=== PATIENT | male | born 1955 | race Caucasian/White ===

== ENCOUNTER → 2017-11-07 | Outpatient (CLI) | payer BC, SELFPAY | PROVIDERS: Family Provider Family Medicine; Visit Provider Family Medicine | DX: R06.02 Shortness of breath (principal) | CPT/HCPCS: 94060; 94640 ==

== ENCOUNTER → 2018-09-17 14:41 | Outpatient (CLI) | payer BC, SELFPAY ==
[2018-09-19 15:20] LABS: PSA, Free 0.26 ng/mL; Prostate Specific Ag 1.3 ng/mL (0.0-4.0)
[2018-09-21 18:42] LABS: Testosterone, Total, LC/MS 375.8 ng/dL (264.0-916.0); Testosterone,Free 5.7 pg/mL (6.6-18.1)
== END ==
PROVIDERS: Visit Provider Urology
DX: E29.1 Testicular hypofunction (principal); N40.0 Benign prostatic hyperplasia without lower urinary tract symptoms
CPT/HCPCS: 36415; 84153; 84154; 84402; 84403

== ENCOUNTER 2019-08-11 21:03 | Observation (INO) ==
[2019-08-11 21:22] LABS: Microscopic, Urine URINE MICROSCOPIC (MICROSCOPIC)
[2019-08-11 21:23] LABS: Appearance,Urine CLEAR (Clear); Bilirubin,Urine Negative (Negative); Blood, Urine Negative (Negative); Color,Urine YELLOW (Yellow); Glucose,Urine (UA) Negative (Negative); Ketones,Urine Negative (Negative); Leukocyte Esterase,Urine Negative (Negative); PH,Urine 5.5 (5.0-8.5); Protein,Urine Negative (Negative); Specific Gravity, Urine >= 1.030 (1.005-1.030); Urobilinogen,Urine 0.2 EU/dl (0.2)
[2019-08-11 21:25] LABS: Basophils % 0.2 % (0.1-2.0); Eosinophils # 0.4 K/mm3 (0.0-0.4); Eosinophils % 2.5 % (0.1-12.0); Hematocrit 54.8 % (42.0-52.0); Lymphocytes # 2.6 K/mm3 (0.7-4.5); Lymphocytes % 17.8 % (10-50); Mean Corpuscular HGB Conc 34.1 g/dL (31.8-35.4); Mean Corpuscular Volume 95.9 fl (80-94); Mean Platelet Volume 8.4 fl (7.4-10.4); Monocytes # 0.8 K/mm3 (0.1-1.0); Monocytes % 5.7 % (1.7-9.3); Neutrophils # 10.7 K/mm3 (1.8-7.8); Neutrophils % 73.8 % (37.0-80.0); Platelet Count 257 K/mm3 (142-424); Red Blood Count 5.72 M/mm3 (4.60-6.20); Red Cell Distribution Width 12.5 % (11.5-17.5); White Blood Count 14.5 K/mm3 (4.8-10.8)
[2019-08-11 21:29] LABS: Hemoglobin 18.8 g/dL (14.1-18.0)
[2019-08-11 21:32] LABS: Bacteria,Urine 1+ /lpf; Calcium Oxalate Crystals,Urine Trace /lpf; Mucus,Urine 1+ /lpf; WBC,Urine Occasional #/hpf (0-3)
[2019-08-11 21:36] LABS: Albumin Level 4.2 gm/dL (3.4-5.0); Albumin/Globulin Ratio 1.3 (1.1-1.8); Anion Gap 13.7 mEq/L (5-15); Bilirubin,Total 0.5 mg/dL (0.2-1.0); C-Reactive Protein 2.5 mg/dL (0.0-0.9); Calcium 9.3 mg/dL (8.5-10.1); Globulin 3.3 gm/dl (1.3-3.2); Total Protein,Serum 7.5 gm/dL (6.4-8.2)
--- NOTE | 2019-08-11 22:34 | Emergency Department Note ---
ED Disposition Clinical Impression: Enteritis Disposition: Admitted as Observation Condition on Discharge: Good Referrals: Pérez Phelan MD [Primary Care Provider] - - Critical Care Critical Care Time: No Attestation: On 08/11/19, the high probability of a clinically significant, sudden or life threatening deterioration of the following system(s) required my full and direct attention, intervention and personal management. The time I documented below is in addition to time spent performing reported procedures but includes the following listed in this critical care notation. Medical Decision Making - Medical Records Medical records reviewed: Yes: I reviewed the patient's medical records. - Brett Inquiry Pt receiving controlled substance: No Vital Signs: 08/11/19 21:08 08/11/19 21:56 08/11/19 22:22 Temperature 98.4 F Temperature Source Oral Pulse Rate [Right Brachial] 86 80 72 Respiratory Rate 18 18 18 Blood Pressure [Right Arm] 148/89 H 122/95 H 140/78 Blood Pressure Mean [Right Arm] 108 104 98 Blood Pressure Source [Right Arm] Automatic Cuff Automatic Cuff Automatic Cuff Blood Pressure Position [Right Arm] Sitting Sitting Sitting 02 Sat by Pulse Oximetry 97 98 97 Oxygen Delivery Method Room Air Room Air Room Air - Lab Data Lab results reviewed: Yes: I reviewed the patient's lab results. Lab Results 08/11/19 21:15: Urine Color Yellow, Urine Appearance Clear, Urine pH 5.5, Ur Specific [place] >= 1.030, Urine Protein Negative, Urine Glucose (UA) Negative, Urine Ketones Negative, Urine Blood Negative, Urine Nitrate Negative, Urine Bilirubin Negative, Urine Urobilinogen 0.2, Ur Leukocyte Esterase Negative, Urine WBC Occasional, Calcium Oxalate Crystal Trace, Urine Bacteria 1+, Urine Mucus 1+ 08/11/19 21:15: WBC 14.5 H, RBC 5.72, Hgb 18.8 H*, Hct 54.8 H, MCV 95.9 H, MCH 32.7 H, MCHC 34.1, RDW 12.5, Plt Count 257, MPV 8.4, Neut % (Auto) 73.8, Lymph % (Auto) 17.8, [place] % (Auto) 5.7, Eos % (Auto) 2.5, Baso % (Auto) 0.2, Neut # (Auto) 10.7 H, Lymph # (Auto) 2.6, [place] # (Auto) 0.8, Eos # (Auto) 0.4, Baso # (Auto) 0.0 08/11/19 21:15: Sodium 142, Potassium 3.7, Chloride 102, Carbon Dioxide 30, Anion Gap 13.7, BUN 14, Creatinine 0.88, Estimated Creat Clear 76, Estimated GFR 88, Est GFR ( Amer) 106, Glucose 108 H, Calcium 9.3, Total Bilirubin 0.5, AST 13 L, ALT 14, Alkaline Phosphatase 72, C-Reactive Protein 2.5 H, Total Protein 7.5, Albumin 4.2, Globulin 3.3 H, Albumin/Globulin Ratio 1.3, Amylase 32, Lipase 103 08/11/19 21:15: ESR 1 Result diagrams: 08/11/19 21:15 08/11/19 21:15 Orders (Tests/Meds): ED MEDICATIONS Generic Name Dose Route Start Last Admin Trade Name Freq PRN Reason Stop Dose Admin Sodium Chloride 1,000 mls @ 999 mls/hr 08/11/19 21:15 08/11/19 21:54 Sod Chlor 0.9% 1000ml Bag IV 08/11/19 22:15 999 mls/hr .[id number] SHASHANK Administration Discontinued Medications Generic Name Dose Route Start Last Admin Trade Name Freq PRN Reason Stop Dose Admin Ketorolac Tromethamine 30 mg 08/11/19 21:52 08/11/19 21:54 Toradol 30mg/Ml Vial IV 08/11/19 21:53 30 mg ONCE ONE Administration Ondansetron HCl 4 mg 08/11/19 21:17 08/11/19 21:54 Zofran 4mg/2ml Vial IV 08/11/19 21:18 4 mg ONCE ONE Administration ORDERS Category Date Time Status CT abdomen pelvis wo con Stat Cat Scan 08/11/19 21:15 Taken Diarrhea 23 Panel, PCR Stat Lab 08/11/19 21:15 Ordered - CT Data CT Scan: Abdomen, Pelvis Time Received: 22:[address] Reviewed: Yes: I have viewed the radiologist's interpretation Preliminary Findings: Abnormal (see report) - Physician Consults Physician Consulted: alexa Reason -: Admission Nausea/Vomiting/Diarrhea HPI - General Chief complaint: Abdominal Pain Stated complaint: abd pain Time Seen by Provider: 08/11/19 21:15 Mode of Arrival: Ambulatory Source of Information: Patient, Medical Record ( ) Limitations: No Limitations Description of Symptoms (Recalled from ER Triage Doc. by RN): Pt c/o diarrhea,nausea, abd pain x 2 days. Denies any other symptoms at this time. - History of Present Illness HPI Narrative: pt with 2-3 day hx of crampy abd pain with diarrhea w/o blood or known contacts complaint: nausea, diarrhea, abdominal pain Onset (ago): day(s) Associated Abdominal Pain: Yes Location of pain: diffuse Severity: moderate Associated symptoms: denies other symptoms - Related Data Home Medications Medication Instructions Recorded Confirmed No Known Home Medications 08/11/19 08/11/19 Testosterone Cypionate 1 inj IM MONTHLY 08/11/19 08/11/19 Allergies Allergy/AdvReac Type Severity Reaction Status Date / Time No Known Allergies Allergy Verified 08/11/19 22:24 [facility] History - Hepatitis A Screen Drug use history?: No High risk sexual behaviors?: No History of sexually transmitted infection?: No Currently employed?: No Childcare worker?: No Do you have indoor plumbing?: Yes Do you have electricity?: Yes Attestation statement:: This patient has been screened for Hepatitis A risk factors. I have reviewed the patient's past medical history: Yes Medical History: Reports:: Hyperlipidemia Other Medical History: Reports: Arthritis Laterality Cases: Bilateral: Tonsillectomy Other Surgeries: Yes: Other Amputation: No Fractures: No Comment: URINARY STENTS,LITHOTRISY X 3,ORAL SURGERY - Social History Smoking Status: Current every day smoker # Packs/Day (cigarettes): 1 Alcohol Intake: never Substance Use Type: denies use Occupational Status: employed Housing: house Household Members: spouse Family Hx:: Asthma, Hyperlipidemia, Diabetes, Hypertension ROS Obtained: Yes All systems reviewed & no additional complaints - Constitutional Constitutional: Denies fever(s) - Eyes Eyes: Denies change in vision - ENT Ears, Nose, Mouth, and Throat: Denies sore throat - Cardiovascular Cardiovascular: Denies chest pain - Respiratory Respiratory: No cough - Gastrointestinal Gastrointestingal: Reports: as per HPI, abdominal pain, cramping, diarrhea, vomiting. Denies: bright red blood in stools - Genitourinary Male Genitourinary: Denies hematuria - Musculoskeletal Musculoskeletal: Denies joint pain, Denies joint swelling - Integumentary/Breasts Skin/Breast: Denies rash - Neurologic Neurologic: Denies seizure-like activity Physical Exam - General General appearance: alert - Head Head exam: normocephalic - Eye Eye exam: Present: PERRL, EOMI. Absent: scleral icterus - ENT ENT exam: Present: mucous membranes dry - Neck Neck exam: Present: trachea midline - Respiratory Respiratory exam: Absent: respiratory distress - Cardiovascular Cardiovascular exam: Present: regular rate, systolic murmur - Abdominal Exam Abdominal exam: Present: soft, tenderness, hyperactive bowel sounds. Absent: guarding, rebound, rigidity Abdominal tenderness: Present: moderate - Extremities Exam Extremities exam: Present: full ROM - Neurological Exam Neurological exam: Present: alert, oriented X3, CN II-XII intact - Psychiatric Psychiatric exam: Present: normal affect - Skin Skin exam: Absent: rash
[2019-08-12 05:55] LABS: Basophils % 0.1 % (0.1-2.0); Eosinophils % 0.5 % (0.1-12.0); Hematocrit 48.4 % (42.0-52.0); Lymphocytes # 0.7 K/mm3 (0.7-4.5); Lymphocytes % 9.3 % (10-50); Mean Corpuscular HGB Conc 32.9 g/dL (31.8-35.4); Mean Corpuscular Volume 97.9 fl (80-94); Mean Platelet Volume 8.5 fl (7.4-10.4); Monocytes # 0.2 K/mm3 (0.1-1.0); Monocytes % 2.8 % (1.7-9.3); Neutrophils # 6.6 K/mm3 (1.8-7.8); Neutrophils % 87.3 % (37.0-80.0); Platelet Count 193 K/mm3 (142-424); Red Blood Count 4.95 M/mm3 (4.60-6.20); Red Cell Distribution Width 12.6 % (11.5-17.5); White Blood Count 7.5 K/mm3 (4.8-10.8)
[2019-08-12 06:08] LABS: Anion Gap 10.9 mEq/L (5-15)
--- NOTE | 2019-08-12 07:16 | Pharmacy Consult Notes ---
[facility] Pharmacy VTE Monitoring - Patient Demographics Admission date: 08/12/19 Report Date: 08/12/19 Time: 07:16 Allergies/Adverse Reactions: Patient Allergies No Known Allergies Allergy (Verified 08/11/19 22:24) Height: 1.68 m Weight: 72.773 kg Patient Problems: Current Active Problems Enteritis (Acute) - VTE Risk Labs: VTE Related Lab Results Hgb 16.0 g/dL (14.1-18.0) D 08/12/19 05:40 Hct 48.4 % (42.0-52.0) 08/12/19 05:40 Plt Count 193 K/mm3 (142-424) 08/12/19 05:40 BUN 14 mg/dL (7-18) 08/12/19 05:40 Creatinine 0.83 mg/dL (0.70-1.30) 08/12/19 05:40 Estimated Creat Clear 79 mL/min (50-200) 08/12/19 05:40 Was VTE Risk Assessment Performed: Yes VTE Score: 2 VTE Risk Level: Very Low Risk Clinical Trial Participant: No - Prophylaxis VTE Prophylaxis Ordered?: Yes Types of VTE Prophylaxis: TEDS Knee High
[2019-08-12 08:18] LABS: Lymphocytes % 8 % (10-50); Monocytes % 2 % (2-9); Neutrophils % 90 % (42-76); Total Cells Counted 100
--- NOTE | 2019-08-12 08:59 | History & Physical Report ---
*Admission Date: 08/12/19 <Debra Bowles 08/12/19 09:13> *Chief complaint: diarrhea <Debra Bowles 08/12/19 09:13> *History of present illness: Mr. Gates is a 62-year-old male with a history of sleep apnea, tobacco use disorder, diverticulosis, and kidney stones who presented to [facility] emergency room with acute abdominal pain and diarrhea. He states he had diarrhea for 2 days last week followed by 2 days of normal stools and then again began having diarrhea for the past 2 days. The abdominal pain began yesterday after work and he describes it is sharp and intermittent. He denies fever. He states he had diminished urinary output. He has had no upper respiratory signs or symptoms. He describes black stools after taking Pepto- Bismol. With work-up in the emergency room stool panel revealed Giardiasis. He was given a dose of Levaquin, Toradol for pain, Zofran and IV fluids. He was then admitted for further care. <Debra Bowles 08/12/19 09:13> [facility] History Medical History: Reports:: Hyperlipidemia, Kidney Stones Denies:: Atherosclerotic Heart Disease, Cancer, Diabetes Mellitus Type 1, Diabetes Mellitus Type 2, MRSA <Debra Bowles 08/12/19 09:13> *Have you ever received a pneumonia vaccine?: Yes <Debra Bowles 08/12/19 09:13> *Have you received a flu vaccine this season?: No (NOT THIS SEASON) <Debra Bowles 08/12/19 09:13> Other Medical History: Reports: Arthritis <BowlesDebra 08/12/19 09:13> Comment:: sleep apnea <WilburDebra 08/12/19 09:13> Laterality Cases: Bilateral: Tonsillectomy <Bowles,Debra 08/12/19 09:13> Other Surgeries: Yes: Other (LITHOTRIPSY) <WilburDebra 08/12/19 09:13> Amputation: No <Debra Bowles 08/12/19 09:13> Fractures: No <WilburDebra 08/12/19 09:13> - *Social History Educational Level: Completed High School <WilburDebra 08/12/19 09:13> Smoking Status: Current every day smoker <Vi Bowleshy 08/12/19 09:13> Tobacco Type: cigarettes <Vi Bowleshy 08/12/19 09:13> # Packs/Day (cigarettes): 1 <Vi Bowleshy 08/12/19 09:13> Alcohol Intake: never <Debra Bowles 08/12/19 09:13> Substance Use Type: denies use <Vi Bowleshy 08/12/19 09:13> *Occupational Status:: employed <Debra Bowles 08/12/19 09:13> Housing: house <Vi Bowleshy 08/12/19 09:13> Household Members: spouse <Vi Bowleshy 08/12/19 09:13> *Travel in the last 8 weeks: None <Vi Bowleshy 08/12/19 09:13> Family Hx:: Asthma, Hyperlipidemia, Diabetes, Hypertension <Vi Bowleshy 08/12/19 09:13> Review of Systems - Constitutional Reports headache(s), Denies fever(s) <Vi Bowleshy 08/12/19 09:13> - Eyes Denies change in vision <Vi Bowleshy 08/12/19 09:13> - ENT Denies ear pain, Denies sore throat <WilburDebra 08/12/19 09:13> - *Cardiovascular Denies chest pain, Denies shortness of breath, Denies generalized swelling, Denies irregular heart rhythm <Vi Bowleshy 08/12/19 09:13> - *Respiratory Denies chest congestion, Denies cough, Denies shortness of breath <Vi Bowleshy 08/12/19 09:13> - *Gastrointestinal Reports abdominal pain, Reports change in bowel habits, Reports change in stools, Reports loose stools, Reports nausea, Denies constipation, Denies heartburn, Denies vomiting blood, Denies black, tarry stools, Denies vomiting <Vi Bowleshy 08/12/19 09:13> - *Genitourinary Denies difficulty urinating <Vi Bowleshy 08/12/19 09:13> - *Musculoskeletal Reports joint pain <Debra Bowles - 08/12/19 09:13> - *Neurologic Reports headache(s), Denies seizure-like activity <Debra Bowles - 08/12/19 09:13> Meds Home Medications Medication Instructions Recorded Confirmed Type Testosterone Cypionate 1 inj IM MONTHLY 08/11/19 08/11/19 History <Pérez Phelan - 08/12/19 09:29> Allergies Allergy/AdvReac Type Severity Reaction Status Date / Time No Known Allergies Allergy Verified 08/11/19 22:24 <Pérez Phelan - 08/12/19 09:29> Exam Vital signs and Labs for Last 24 Hours: Temp Pulse Resp BP Pulse Ox 97.5 F L 66 18 129/69 94 L 08/12/19 08:00 08/12/19 08:00 08/12/19 08:00 08/12/19 08:00 08/12/19 08:00 Laboratory Results - last 24 hr 08/11/19 21:15: Urine Color Yellow, Urine Appearance Clear, Urine pH 5.5, Ur Specific [place] >= 1.030, Urine Protein Negative, Urine Glucose (UA) Negative, Urine Ketones Negative, Urine Blood Negative, Urine Nitrate Negative, Urine Bilirubin Negative, Urine Urobilinogen 0.2, Ur Leukocyte Esterase Negative, Urine WBC Occasional, Calcium Oxalate Crystal Trace, Urine Bacteria 1+, Urine Mucus 1+ 08/11/19 21:15: WBC 14.5 H, RBC 5.72, Hgb 18.8 H*, Hct 54.8 H, MCV 95.9 H, MCH 32.7 H, MCHC 34.1, RDW 12.5, Plt Count 257, MPV 8.4, Neut % (Auto) 73.8, Lymph % (Auto) 17.8, [place] % (Auto) 5.7, Eos % (Auto) 2.5, Baso % (Auto) 0.2, Neut # (Auto) 10.7 H, Lymph # (Auto) 2.6, [place] # (Auto) 0.8, Eos # (Auto) 0.4, Baso # (Auto) 0.0 08/11/19 21:15: Sodium 142, Potassium 3.7, Chloride 102, Carbon Dioxide 30, Anion Gap 13.7, BUN 14, Creatinine 0.88, Estimated Creat Clear 76, Estimated GFR 88, Est GFR ( Amer) 106, Glucose 108 H, Calcium 9.3, Total Bilirubin 0.5, AST 13 L, ALT 14, Alkaline Phosphatase 72, C-Reactive Protein 2.5 H, Total Protein 7.5, Albumin 4.2, Globulin 3.3 H, Albumin/Globulin Ratio 1.3, Amylase 32, Lipase 103 08/11/19 21:15: ESR 1 08/11/19 22:40: Lactate 1.6 08/12/19 00:30: Stl Aeromonas (PCR) Not detected, Stl C. cayetanensis PCR Not detected, Stool Rotavirus (PCR) Not detected, Stl Adenov F 40/41 PCR Not detected, Stool Astrovirus (PCR) Not detected, Stool Campylobacter PCR Not detected, Stl C.difficile Tox PCR Not detected, Stool Cryptosporidium PCR Not detected, Stl E.coli Shiga Tox PCR Not detected, Stool E coli O157 PCR Not detected, Stl Enterotoxigenic E PCR Not detected, Stool EPEC (PCR) Not detected, Stool EAEC (PCR) Not detected, Stl E. histolytica PCR Not detected, Stool Giardia Lamblia PCR Detected A, Stool Salmonella PCR Not detected, Stool Sapovirus (PCR) Not detected, Stl P. shigelloides PCR Not detected, Stl Shigella/EIEC PCR Not detected, St Y.enterocolitica PCR Not detected, Stool Vibrio (PCR) Not detected, Stl Vibrio cholerae PCR Not detected, Stl Norovirus GI/GII PCR Not detected 08/12/19 05:40: WBC 7.5 D, RBC 4.95, Hgb 16.0 D, Hct 48.4, MCV 97.9 H, MCH 32.3 H, MCHC 32.9, RDW 12.6, Plt Count 193, MPV 8.5, Neut % (Auto) 87.3 H, Lymph % (Auto) 9.3 L, [place] % (Auto) 2.8, Eos % (Auto) 0.5, Baso % (Auto) 0.1, Neut # (Auto) 6.6, Lymph # (Auto) 0.7, [place] # (Auto) 0.2, Eos # (Auto) 0.0, Baso # (Auto) 0.0, Total Counted 100, Neutrophils % (Manual) 90 H, Lymphocytes % (Manual) 8 L, Monocytes % (Manual) 2, Platelet Estimate Normal, RBC Morphology Not Reportable 08/12/19 05:40: Sodium 140, Potassium 4.9 D, Chloride 106, Carbon Dioxide 28, Anion Gap 10.9, BUN 14, Creatinine 0.83, Estimated Creat Clear 79, Estimated GFR 94, Est GFR ( Amer) 114, Glucose 137 H D, Calcium 9.0 <CulleokaStephPérez - 08/12/19 09:29> Temp Pulse Resp BP Pulse Ox 97.5 F L 66 18 129/69 94 L 08/12/19 08:00 08/12/19 08:00 08/12/19 08:00 08/12/19 08:00 08/12/19 08:00 Laboratory Results - last 24 hr 08/11/19 21:15: Urine Color Yellow, Urine Appearance Clear, Urine pH 5.5, Ur Specific [place] >= 1.030, Urine Protein Negative, Urine Glucose (UA) Negative, Urine Ketones Negative, Urine Blood Negative, Urine Nitrate Negative, Urine Bilirubin Negative, Urine Urobilinogen 0.2, Ur Leukocyte Esterase Negative, Urine WBC Occasional, Calcium Oxalate Crystal Trace, Urine Bacteria 1+, Urine Mucus 1+ 08/11/19 21:15: WBC 14.5 H, RBC 5.72, Hgb 18.8 H*, Hct 54.8 H, MCV 95.9 H, MCH 32.7 H, MCHC 34.1, RDW 12.5, Plt Count 257, MPV 8.4, Neut % (Auto) 73.8, Lymph % (Auto) 17.8, [place] % (Auto) 5.7, Eos % (Auto) 2.5, Baso % (Auto) 0.2, Neut # (Auto) 10.7 H, Lymph # (Auto) 2.6, [place] # (Auto) 0.8, Eos # (Auto) 0.4, Baso # (Auto) 0.0 08/11/19 21:15: Sodium 142, Potassium 3.7, Chloride 102, Carbon Dioxide 30, Anion Gap 13.7, BUN 14, Creatinine 0.88, Estimated Creat Clear 76, Estimated GFR 88, Est GFR ( Amer) 106, Glucose 108 H, Calcium 9.3, Total Bilirubin 0.5, AST 13 L, ALT 14, Alkaline Phosphatase 72, C-Reactive Protein 2.5 H, Total Protein 7.5, Albumin 4.2, Globulin 3.3 H, Albumin/Globulin Ratio 1.3, Amylase 32, Lipase 103 08/11/19 21:15: ESR 1 08/11/19 22:40: Lactate 1.6 08/12/19 00:30: Stl Aeromonas (PCR) Not detected, Stl C. cayetanensis PCR Not detected, Stool Rotavirus (PCR) Not detected, Stl Adenov F 40/41 PCR Not detected, Stool Astrovirus (PCR) Not detected, Stool Campylobacter PCR Not detected, Stl C.difficile Tox PCR Not detected, Stool Cryptosporidium PCR Not detected, Stl E.coli Shiga Tox PCR Not detected, Stool E coli O157 PCR Not detected, Stl Enterotoxigenic E PCR Not detected, Stool EPEC (PCR) Not detected, Stool EAEC (PCR) Not detected, Stl E. histolytica PCR Not detected, Stool Giardia Lamblia PCR Detected A, Stool Salmonella PCR Not detected, Stool Sapovirus (PCR) Not detected, Stl P. shigelloides PCR Not detected, Stl Shigella/EIEC PCR Not detected, St Y.enterocolitica PCR Not detected, Stool Vibrio (PCR) Not detected, Stl Vibrio cholerae PCR Not detected, Stl Norovirus GI/GII PCR Not detected 08/12/19 05:40: WBC 7.5 D, RBC 4.95, Hgb 16.0 D, Hct 48.4, MCV 97.9 H, MCH 32.3 H, MCHC 32.9, RDW 12.6, Plt Count 193, MPV 8.5, Neut % (Auto) 87.3 H, Lymph % (Auto) 9.3 L, [place] % (Auto) 2.8, Eos % (Auto) 0.5, Baso % (Auto) 0.1, Neut # (Auto) 6.6, Lymph # (Auto) 0.7, [place] # (Auto) 0.2, Eos # (Auto) 0.0, Baso # (Auto) 0.0, Total Counted 100, Neutrophils % (Manual) 90 H, Lymphocytes % (Manual) 8 L, Monocytes % (Manual) 2, Platelet Estimate Normal, RBC Morphology Not Reportable 08/12/19 05:40: Sodium 140, Potassium 4.9 D, Chloride 106, Carbon Dioxide 28, Anion Gap 10.9, BUN 14, Creatinine 0.83, Estimated Creat Clear 79, Estimated GFR 94, Est GFR ( Amer) 114, Glucose 137 H D, Calcium 9.0 <Debra Bowles 08/12/19 09:13> I & O for Last 24 hours: Intake & Output 08/09/19 08/10/19 08/11/19 08/12/19 23:59 23:59 23:59 23:59 Intake Total 538 / 538 Balance 538 / 538 Weight 160 lb 7 oz 160 lb 7 oz <CulleokaPérez - 08/12/19 09:29> Intake & Output 08/09/19 08/10/19 08/11/19 08/12/19 11:59 11:59 11:59 11:59 Intake Total 538 / 538 Balance 538 / 538 Weight 160 lb 7 oz <Debra Bowles 08/12/19 09:13> Radiology Reports for the Last 24 Hours: 08/11/19 CT of Abd/pelvis IMPRESSION: Moderate to severe inflammatory wall thickening of the ileum, cecum, ascending colon, descending colon, and sigmoid colon with stranding of the mesenteric fat in the lower abdomen and a small amount of free fluid around the liver with a moderate amount of fluid in the pelvis. These findings are consistent with moderate to severe enterocolitis <Debra Bowles 08/12/19 09:13> - Constitutional no acute distress <Debra Bowles 08/12/19 09:13> Comments: appears comfortable <Debra Bowles 08/12/19 09:13> - *Routine HEENT Exam Head: Present: normocephalic, Hutchins's sign <Vi Bowleshy 08/12/19 09:13> Eye: Present: PERRL. Absent: conjunctival icterus, scleral injection, conjunctivae pink <Debra Bowles 08/12/19 09:13> ENT: Present: mucous membranes moist, oropharynx clear <Debra Bowles 08/12/19 09:13> - *Routine Neck Exam Present: supple. Absent: carotid bruit, lymphadenopathy, thyromegaly <Debra Bowles 08/12/19 09:13> - *Routine Respiratory Exam Present: CTA bilaterally (A&P) <Debra Bowles - 08/12/19 09:13> - *Routine Cardiovascular Exam Present: RRR <Debra Bowles 08/12/19 09:13> - *Routine Abdominal Exam Present: soft, normoactive bowel sounds, tenderness (mid abdomen). Absent: guarding <Debra Bowles 08/12/19 09:13> - *Routine Extremities Exam Absent: edema, calf tenderness <Debra Bowles 08/12/19 09:13> - *Routine Neurological Exam Present: alert, oriented X3 <Debra Bowles 08/12/19 09:13> Assessment and Plan (1) Giardiasis Current visit: Yes Status: Acute Category: Medical Code(s): A07.1 - Giardiasis [lambliasis] (2) Enteritis Current visit: Yes Status: Acute Category: Medical Code(s): K52.9 - Noninfective gastroenteritis and colitis, unspecified (3) Arthritis Current visit: Yes Status: Acute Category: Medical Code(s): M19.90 - Unspecified osteoarthritis, unspecified site (4) Sleep apnea Current visit: Yes Status: Acute Category: Medical Code(s): G47.30 - Sleep apnea, unspecified (5) Tobacco use disorder Current visit: Yes Status: Acute Category: Medical Code(s): F17.200 - Nicotine dependence, unspecified, uncomplicated <Pérez Phelan - 08/12/19 09:29> (1) Giardiasis Current visit: Yes Status: Acute Category: Medical Code(s): A07.1 - Giardiasis [lambliasis] (2) Enteritis Current visit: Yes Status: Acute Category: Medical Code(s): K52.9 - Noninfective gastroenteritis and colitis, unspecified (3) Arthritis Current visit: Yes Status: Acute Category: Medical Code(s): M19.90 - Unspecified osteoarthritis, unspecified site (4) Sleep apnea Current visit: Yes Status: Acute Category: Medical Code(s): G47.30 - Sleep apnea, unspecified (5) Tobacco use disorder Current visit: Yes Status: Acute Category: Medical Code(s): F17.200 - Nicotine dependence, unspecified, uncomplicated <Debra Bowles - 08/12/19 08:56> - Assessment and plan all Dx Assessment and Plan for all problems:: Saw patient, agree with above note. <Pérez Phelan - 08/12/19 09:29> Will start Flagyl; continue with IVF for now; GI rest; will try clear liquids <Debra Bowles - 08/12/19 09:13>
--- NOTE | 2019-08-13 08:29 | Progress Note ---
<Sindhu Salomon - Last Filed: 08/13/19 08:26> Internal Medicine - PN: Subj *Date: 08/13/19 *Time: 08:26 Interval history: Patient states he is feeling much better this morning. He has not had any further nausea or vomiting. He has had no diarrhea. He still has some mild abdominal pain. He has tolerated a diet and is anxious to go home today. Exam Vital signs and Labs for Last 24 Hours: Temp Pulse Resp BP Pulse Ox 97.6 F 65 17 114/67 94 L 08/13/19 04:00 08/13/19 04:00 08/13/19 04:00 08/13/19 04:00 08/13/19 04:00 I & O for Last 24 hours: Intake & Output 08/10/19 08/11/19 08/12/19 08/13/19 11:59 11:59 11:59 11:59 Intake Total 538 / 538 3766 / 3766 Output Total 1950 / 1950 Balance 538 / 538 1816 / 1816 Weight 160 lb 7 oz 164 lb 4 oz - Constitutional no acute distress - *Routine Respiratory Exam Present: CTA bilaterally - *Routine Cardiovascular Exam Present: RRR - *Routine Abdominal Exam Present: soft, normoactive bowel sounds, tenderness (upper abdomen) - *Routine Extremities Exam Absent: cyanosis, clubbing, edema - *Routine Skin Exam Present: warm. Absent: rash - *Routine Neurological Exam Present: alert, oriented X3 Assessment and Plan (1) Giardiasis Current visit: Yes Status: Acute Category: Medical Code(s): A07.1 - Giardiasis [lambliasis] (2) Enteritis Current visit: Yes Status: Acute Category: Medical Code(s): K52.9 - Noninfective gastroenteritis and colitis, unspecified (3) Arthritis Current visit: Yes Status: Acute Category: Medical Code(s): M19.90 - Unspecified osteoarthritis, unspecified site (4) Sleep apnea Current visit: Yes Status: Acute Category: Medical Code(s): G47.30 - Sleep apnea, unspecified (5) Tobacco use disorder Current visit: Yes Status: Acute Category: Medical Code(s): F17.200 - Nicotine dependence, unspecified, uncomplicated - Assessment and plan all Dx Assessment and Plan for all problems:: Patient has improved. Possible discharge home today. <Steph Phelanian - Last Filed: 08/13/19 08:53> Internal Medicine - PN: Subj *Date: 08/13/19 *Time: 08:52 Exam Vital signs and Labs for Last 24 Hours: Temp Pulse Resp BP Pulse Ox 98.1 F 67 18 153/72 H 96 08/13/19 08:00 08/13/19 08:00 08/13/19 08:00 08/13/19 08:00 08/13/19 08:00 I & O for Last 24 hours: Intake & Output 08/10/19 08/11/19 08/12/19 08/13/19 23:59 23:59 23:59 23:59 Intake Total 3113 / 3113 1291 / 1291 Output Total 950 / 950 1000 / 1000 Balance 2163 / 2163 291 / 291 Weight 160 lb 7 oz 160 lb 7 oz 164 lb 4 oz Assessment and Plan (1) Giardiasis Current visit: Yes Status: Acute Category: Medical Code(s): A07.1 - Giardiasis [lambliasis] (2) Enteritis Current visit: Yes Status: Acute Category: Medical Code(s): K52.9 - Noninfective gastroenteritis and colitis, unspecified (3) Arthritis Current visit: Yes Status: Acute Category: Medical Code(s): M19.90 - Unspecified osteoarthritis, unspecified site (4) Sleep apnea Current visit: Yes Status: Acute Category: Medical Code(s): G47.30 - Sleep apnea, unspecified (5) Tobacco use disorder Current visit: Yes Status: Acute Category: Medical Code(s): F17.200 - Nicotine dependence, unspecified, uncomplicated - Assessment and plan all Dx Assessment and Plan for all problems:: Saw patient, agree with above note. OK for discharge today, off work the rest of this week. Office f/u next week.
--- NOTE | 2019-08-14 13:22 | Discharge Summary ---
General - General Admission date:: 08/11/19 Discharge date: 08/13/19 HPI HPI: Mr. Gates is a 62-year-old male with a history of sleep apnea, tobacco use disorder, diverticulosis, and kidney stones who presented to [facility] emergency room with acute abdominal pain and diarrhea. He states he had diarrhea for 2 days last week followed by 2 days of normal stools and then again began having diarrhea for the past 2 days. The abdominal pain began yesterday after work and he describes it is sharp and intermittent. He denies fever. He states he had diminished urinary output. He has had no upper respiratory signs or symptoms. He describes black stools after taking Pepto- Bismol. With work-up in the emergency room, stool panel revealed Giardiasis. He was given a dose of Levaquin, Toradol for pain, Zofran and IV fluids. He was then admitted for further care. Hospital Course Hospital Course: The patient had a CT of the abdomen showing moderate to severe inflammatory wall thickening of the ileum, cecum, ascending colon, descending colon, and sigmoid colon. He was felt to have severe enterocolitis. He was started on Flagyl and IV fluids as well as GI rest and clear liquids. By 08/13/2019, he felt much better and had no further nausea or vomiting. His diarrhea had resolved but he was still having some mild abdominal pain. He tolerated a diet and was anxious to go home. He was stable to be discharged on Flagyl and will need to remain off work for the rest of the week and follow-up in the office in 1 week. Objective Vital signs: Temp Pulse Resp BP Pulse Ox 98.1 F 67 18 153/72 H 96 08/13/19 08:00 08/13/19 08:00 08/13/19 08:00 08/13/19 08:00 08/13/19 08:00 Narrative: - Constitutional no acute distress Comments: appears comfortable - *Routine HEENT Exam Head: Present: normocephalic, Hutchins's sign Eye: Present: PERRL. Absent: conjunctival icterus, scleral injection, conjunctivae pink ENT: Present: mucous membranes moist, oropharynx clear - *Routine Neck Exam Present: supple. Absent: carotid bruit, lymphadenopathy, thyromegaly - *Routine Respiratory Exam Present: CTA bilaterally (A&P) - *Routine Cardiovascular Exam Present: RRR - *Routine Abdominal Exam Present: soft, normoactive bowel sounds, tenderness (mid abdomen). Absent: guarding - *Routine Extremities Exam Absent: edema, calf tenderness - *Routine Neurological Exam Present: alert, oriented X3 Results Labs on day of discharge: Preliminary micro results at discharge 08/11/19 22:40 Blood Culture - Preliminary Blood NO GROWTH AFTER 48 HOURS 08/11/19 22:40 Blood Culture - Preliminary Blood NO GROWTH AFTER 48 HOURS DS: Diagnosis - Discharge Diagnosis (1) Giardiasis Status: Acute (2) Enteritis Status: Acute (3) Arthritis Status: Acute (4) Sleep apnea Status: Acute (5) Tobacco use disorder Status: Acute Discharge Plan - Patient Discharge Instructions ACTIVITY: Continue current activity DIET: continue same diet Additional Instructions: Off work until 08/08/19 Patient Instructions: Giardiasis - Follow up Plan Follow up with: Pérez Phelan MD [Primary Care Provider] - 08/21/19 9:30 am Disposition: Home, Self-[facility] Medications: Home Medications Medication Instructions Recorded Confirmed Type Testosterone Cypionate 1 inj IM MONTHLY 08/11/19 08/11/19 History metroNIDAZOLE [Flagyl 500mg 500 mg PO TID #21 tab 08/13/19 Rx Tablet] Prescriptions/Medication Reconciliation: New metroNIDAZOLE [Flagyl 500mg Tablet] 500 mg PO TID #21 tab Continued Testosterone Cypionate 1 inj IM MONTHLY - Problem Reconciliation Problems Reviewed?: Yes
== END 2019-08-13 10:42 | disposition home or self-care (01) ==
LOC: 2ND 21:03 → ER 21:03 → 2ND 23:36
PROVIDERS: ADMIT Emergency Medicine; ATTEND Family Medicine
CPT/HCPCS: 36415; 74176; 80048; 80053; 81001; 82150; 83605; 83690; 85007; 85025; 85651; 86140; 87040; 87507; 96365; 96367; 96375; 99284; G0378; J1956; J2405

== ENCOUNTER → 2019-09-09 14:36 | Outpatient (POV) | payer BC, SELFPAY | PROVIDERS: Visit Provider Dermatology | DX: Z00.00 Encounter for general adult medical examination without abnormal findings (principal) ==

== ENCOUNTER → 2019-09-23 14:19 | Outpatient (POV) | payer BC, SELFPAY | PROVIDERS: Visit Provider Dermatology | DX: Z00.00 Encounter for general adult medical examination without abnormal findings (principal) ==

== ENCOUNTER 2020-11-28 11:31 | Emergency (ER) | payer BC, SELFPAY ==
[2020-11-28 12:53] VITALS: BP 139/91; PULSE 61; RESP 19; TEMP 36.6; O2SAT 100; BMI 24.2
--- NOTE | 2020-11-28 12:56 | XR_ITS ---
PROCEDURE: XR FOOT RT MIN 3V CLINICAL INDICATION: INJURY TO PINKY TOE COMPARISON: No exams were available for comparison FINDINGS: The middle and distal phalanx of the little toe are fused a common normal variation and there appears to be a linear nondisplaced fracture through the fused phalanges. The joint spaces are well-preserved. No significant degenerative/arthritic changes. There is minimal spurring of the superior border of the navicular bone. No erosive changes evident. Other findings:None. IMPRESSION: Transverse linear nondisplaced fracture of the fused middle and distal phalanx little toe Dictated by: Dr. Ramon Rodríguez MD 11/28/2020 13:31 Dr. Ramon Rodríguez MD in [place] 11/28/2020 13:31
--- NOTE | 2020-11-28 13:05 | HMH.EDUTC ---
[facility] [place] Clinical Impression: Toe fracture Qualifiers: Encounter type: initial encounter Toe: lesser toe Fracture type: closed Phalanx: distal Fracture alignment: nondisplaced Laterality: right Qualified Code(s): S92.534A - Nondisplaced fracture of distal phalanx of right lesser toe(s), initial encounter for closed fracture Disposition: Home, Self-Care Condition on Discharge: Good Instructions: Toe Fracture, DI for Toe Fracture, How To Perform RICE (Rest, Ice, Compress, Elevate), How to Milka Tape Additional Instructions: *RICE, Rest the extremity, Ice 15-20 minutes 3-4 times daily, Compress- wear the ines wrap as discussed as much as possible to help reduce swelling and pain, Elevate the extremity when at rest *milka tape post op shoe is for support and help control swelling, use it except in the shower. Be sure that is not to tight but not to loose either *Elevate when resting *Ibuprofen 600-800mg every 6-8 hours as needed for pain an inflammation. If need something more can take Tylenol in between doses of Ibuprofen to help Immediately follow up with your family doctor for new or worsening of symptoms, or no noticeable improvement over the next 3-5 days Follow up with your Family Doctor if no improvement or any worsening of symptoms Follow up with Podiatry if needed Return if needed Referrals: Pérez Phelan MD [Primary Care Provider] - As needed Yolanda Joya DPM [Staff Physician] - Forms: Work/School Release Time of Disposition: 13:44 Medical Decision Making - Brett Inquiry Pt receiving controlled substance: No Brett was queried for this patient: No Vital Signs: 11/28/20 12:53 11/28/20 13:45 Temperature 97.8 F 97.8 F Temperature Source Oral Pulse Rate 61 Pulse Rate [Right Brachial] 61 Respiratory Rate 19 19 Blood Pressure 139/91 H Blood Pressure [Right Arm] 139/91 H Blood Pressure Mean [Right Arm] 107 Blood Pressure Source [Right Arm] Automatic Cuff Blood Pressure Position [Right Arm] Sitting 02 Sat by Pulse Oximetry 100 Oxygen Delivery Method Room Air - Radiology Data #1 Image(s): Foot/Toes Image Reviewed: Yes I have reviewed radiologist's interpretation Transverse linear nondisplaced fracture of the fused middle and distal phalanx little toe [facility] [place] - General Stated complaint: a/o [id number] table on baby toe Time Seen by Provider: 11/28/20 13:05 Mode of Arrival: Ambulatory Source of Information: Patient Limitations: No Limitations Description of Symptoms (Recalled from Triage Doc. by RN): PATIENT C/O SWELLING TO RIGHT 5TH TOE. REPORTS HE DROPPED A COFFEE TABLE ON HIS RIGHT FOOT LAST NIGHT HEENT Symptoms (Recalled from RN notes): No Resp Symptoms (Recalled from RN notes): No Skin Symptoms (Recalled from RN notes): No MS Symptoms (Recalled from RN notes): Yes Functional Status (Recalled from RN notes): WNL - History of Present Illness Provider Complaint: Patient states that last night he dropped a coffee table on his right little toe States that ever since he has been having pain and swelling along with bruising ever since and hurt when he put his shoe on States has pain when he tries to walk on it and made him come in and get it checked - Related Data Home Medications Medication Instructions Recorded Confirmed Testosterone Cypionate 1 inj IM MONTHLY 08/11/19 08/11/19 Previous Rx's Medication Instructions Recorded metroNIDAZOLE [Flagyl 500mg 500 mg PO TID #21 tab 08/13/19 Tablet] Allergies Allergy/AdvReac Type Severity Reaction Status Date / Time No Known Allergies Allergy Verified 08/11/19 22:24 - Worker's Comp Is this a Worker's Comp case?: No [facility] History - Hepatitis A Screen Drug use history?: No High risk sexual behaviors?: No History of sexually transmitted infection?: No Currently employed?: No Childcare worker?: No Do you have indoor plumbing?: Yes Do you have electricity?: Yes Attestation statement::
[2020-11-28 13:45] VITALS: BP 139/91; PULSE 61; RESP 19; TEMP 36.6; O2SAT 100
== END 2020-11-28 13:53 | disposition home or self-care (01) ==
PROVIDERS: Emergency Provider Nurse Practitioner; PCP Family Medicine
DX: S92.534A Nondisplaced fracture of distal phalanx of right lesser toe(s), initial encounter for closed fracture (principal); W22.8XXA Striking against or struck by other objects, initial encounter; Y92.019 Unspecified place in single-family (private) house as the place of occurrence of the external cause; E78.5 Hyperlipidemia, unspecified; F17.210 Nicotine dependence, cigarettes, uncomplicated
CPT/HCPCS: 73630; 99202; G0463

== ENCOUNTER → 2022-12-05 15:19 | Outpatient (CLI) | payer OTHER, MEDICARE, SELFPAY ==
[2022-12-05 18:16] LABS: Prostate Specific Ag Screen 1.1 ng/ml (0.0-4.0)
[2022-12-12 00:03] LABS: Testosterone, Total, LC/MS 181.4 ng/dL (264.0-916.0); Testosterone,Free 3.3 pg/mL (6.6-18.1)
== END ==
PROVIDERS: PCP Family Medicine; Visit Provider Urology
DX: N40.1 Benign prostatic hyperplasia with lower urinary tract symptoms (principal); E29.1 Testicular hypofunction; Z12.5 Encounter for screening for malignant neoplasm of prostate
CPT/HCPCS: 36415; 84402; 84403; G0103

== ENCOUNTER 2025-09-10 09:22 | Outpatient (CLI) | payer MEDICARE, SELFPAY ==
[2025-09-10 10:29] LABS: Albumin Level 4.3 g/dl (3.5-5.0); Chloride 104 mmol/L (98-107); Sodium 141 mmol/L (136-145)
[2025-09-10 10:30] LABS: Potassium 4.5 mmoL/L (3.5-5.1)
[2025-09-10 10:32] LABS: Alanine Aminotransferase 17 U/L (12-78); Albumin/Globulin Ratio 1.6 (1.1-1.8); Anion Gap 11.5 mEq/L (5-15); Aspartate Amino Transferase 22 U/L (17-59); Blood Urea Nitrogen 19 mg/dl (9-20); Carbon Dioxide 30 mmol/L (22.0-30.0); Creatinine,Serum 0.80 mg/dl (0.66-1.25); Estimated Glomerular Filt Rate 96 ml/min (>60); GFR (African American) 116 ML/MIN (>60); Globulin 2.7 g/dL (1.3-3.2); Total Protein,Serum 7.0 g/dl (6.3-8.2)
[2025-09-10 10:33] LABS: Alkaline Phosphatase 59 U/L (38-126); Bilirubin,Total 0.5 mg/dl (0.2-1.3); Calcium 8.7 mg/dl (8.4-10.2); Cholesterol 133 mg/dl (140-200); Glucose 100 mg/dl (74-100); HDL Cholesterol 37 mg/dl (40-60); Triglycerides 178 mg/dl (30-150)
== END 2025-09-10 23:59 | disposition home or self-care (01) ==
PROVIDERS: PCP Family Medicine; Visit Provider Family Medicine
DX: Z00.00 Encounter for general adult medical examination without abnormal findings (principal); Z13.220 Encounter for screening for lipoid disorders; Z12.5 Encounter for screening for malignant neoplasm of prostate
CPT/HCPCS: 36415; 80053; 80061; G0103

== ENCOUNTER 2025-09-16 09:33 | Outpatient (CLI) | payer MEDICARE, SELFPAY ==
--- OUTSIDE RECORDS SUMMARY | 2025-09-02 09:30 | XMS_ITS ---
Author Organization [facility] Address [address] [place] [id number] Care Team Providers Care Manager Truck Name Role Phone Pérez Phelan Primary Care Provider [phone] Allergies No Known Allergies Results Component Value Reference Range Notes CBC Fingerstick (in house) Reviewed date:09/02/2025 04:17:59 PM Interpretation: Performing Lab: Notes/Report: wbc 9.2 3.5 - 10 lym 31.4% 15 - 50 mid 7.3% 2 - 15 gran 61.3% 35 - 80 rbc 5.19 3.5 - 5.5 hgb 16.9 11.5 - 16.5 hct 49.5 35 - 55 mcv 95.3 75 - 100 mch 32.5 25 - 35 mchc 34.1 31 - 38 plat 124 100 - 400 H-Lipid Panel Reviewed date:09/11/2025 09:22:05 AM Interpretation:trigs 178, chol 133, dldl 74.78, hdl 37, chol/hdl 3.6 Performing Lab: Notes/Report: Patient Fasting? Y TRIG 178 30-150 mg/dl CHOL 133 140-200 mg/dl DLDL 74.78 100-129 mg/dL VLDL 36 0-40 mg/dL HDL 37 40-60 mg/dl CHLHDL 3.6 1-3.5 H-CMP Reviewed date:09/11/2025 09:22:05 AM Interpretation:Normal Performing Lab: Notes/Report: NA 141 136-145 mmol/L K 4.5 3.5-5.1 mmoL/L CL 104 98-107 mmol/L CO2 30 22.0-30.0 mmol/L GAP 11.5 5-15 mEq/L BUN 19 9-20 mg/dl CREATT 0.80 0.66-1.25 mg/dl GFRAA 116 >60 ML/MIN EGFR 96 >60 ml/min GLU 100 74-100 mg/dl CA 8.7 8.4-10.2 mg/dl BILIT 0.5 0.2-1.3 mg/dl AST 22 17-59 U/L ALT 17 12-78 U/L TP 7.0 6.3-8.2 g/dl ALB 4.3 3.5-5.0 g/dl GLOB 2.7 1.3-3.2 g/dL AGRATIO 1.6 1.1-1.8 ALP 59 38-126 U/L H-PSA Reviewed date:09/11/2025 09:22:05 AM Interpretation:Normal Performing Lab: Notes/Report: PSASC 1.1 0.0-4.0 ng/ml REASON FOR VISIT check up Medications Medication SIG (Take, Route, Fr equency, Duration) Notes Start Date End Date Status Zithromax Z-Ronaldo 250 MG as directed Orall y daily; Duration: 5 days 09/02/2025 Active Meloxicam 7.5 MG 1 tablet Orally Once a day; Duration: 30 days 09/02/2025 Active CPAP SUPPLIES 10/15/2017 Activ e Social History Tobacco Use: Social History Observation Description Date Details (start date - stop date) Former Smoker NA - NA CURRENT TOBACCO USE: Question Answer Notes Are you a: former smoker When did you start smoking? Star ruiz Smoking: Age 18 When did you stop smoking? stopp ed smokin Vital Signs Blood pressure systolic 124 mm Hg 09/02/20 25 Blood pressure diastolic 76 mm Hg 025 Heart Rate 62 /min 09/02/2025 Height 66.25 in 09/02/2025 Weight 157.6 lbs 09/02/2025 BMI 25.24 kg/m2 09/02/2025 Encounters Encounter Location Date Provider Diagnosis [facility] [address] [facility] [address] [place] [id number] 09/02/2025 Pérez [place] Persistent cough R05 .3 ; Pain in right shoulder M25.511 ; Pain in left shoulder M25.512 ; Obstructive sleep apnea syndrome G47.33 ; Personal history of nicotine dependence Z87.891 ; Screening for lung cancer Z12.2 ; Screening, lipid Z13.220 ; Well adult exam Z00.00 ; Prostate cancer screening Z12.5 and BMI 25.0-25.9,adult Z68.25 Assessments Encounter Date Diagnosis (ICD Code) Assessment Notes Treatment Notes Treatment Clinical Notes Section Notes 09/02/2025 Persistent cough (ICD-10 - R05.3) 09/02/2025 Pain in right shoulder (ICD-10 - M25.511) 09/02/2025 Pain in left shoulder (ICD-10 - M25.512) 09/02/2025 Obstructive sleep apnea syndrome (ICD-10 - G47.33) 09/02/2025 Personal history of nicotine dependence (ICD-10 - Z87.891) 09/02/2025 Screening for lung cancer (ICD-10 - Z12.2) 09/02/2025 Screening, lipid (ICD-10 - Z13.220) 09/02/2025 Well adult exam (ICD-10 - Z00.00) 09/02/2025 Prostate cancer screening (ICD-10 - Z12.5) 09/02/2025 BMI 25.0-25.9,adult (ICD-10 - Z68.25) Plan Of Treatment Medication Medication Name Sig Start Date Stop Date Notes Zithromax Z-Ronaldo 250 MG as directed Orall y daily; Duration: 5 days 09/02/2025 Meloxicam 7.5 MG 1 tablet Orally Once a day; Duration: 30 days 09/02/2025 Ibuprofen 400 MG 2 tab(s) orally ever y 6 hours, prn pain CPAP SUPPLIES 10/15/2017 Pending Test Test Name Order Date CT Scan : Chest, low dose 09/02/2025 Next Appt Details Follow Up: via phone to repo rt progress, Reason: Progress Notes * PILI GATESDOB:1955 (69 yo M)Acc No.[id number]:09/02/2025 Progress Notes Patient: PILI GARCIA Provider: Sai Phelan M.D. :1955 A ge:69 Y S ex:Male Date:09/02/2025 Address:[address], [place], [id number] Subjective: * Chief Complaints: * 1 . Check up. * HPI: H PI: Patient is here today for g eneral checkup. Pt has a smoking history of 50 years. Pt's states pt has a bad cough and coughs stuff up. * Medical History: s leep apnea, uses CPAP, Testosterone deficiency, 60 pack year smoking history as of 2024, Diverticulosis, colonoscopy 2010 (?), Kidney stones. * Surgical History: Braden vitale Stone Jun 2017. * Hospitalization/Major Diagno stic Procedure: G iardiasis- [facility] 08/11-, Broken Toe- [facility] ER 11/28/2020. * Family History: F ather: 81 yrs. M other: alive 91 yrs, diagnosed with Hypertension, Diabetes, Heart Disease. C hildren: alive. S iblings: diagnosed with Heart Disease. 3 brother(s) , 1 sister(s) . 1 son(s) , 1 daughter(s) - healthy. . Father - Renal Failure, Brother, - Heart Failure. * Social History: C URRENT TOBACCO USE A re you a: f ormer smoker, W hen did you start smoking? Started Smoking: Age 18, W hen did you stop smoking? stopped smokin. P ast smoking status: previous history. * Medications: T aking CPAP SUPPLIES DIRECTED , Not-Taking Ibuprofen 400 MG Tablet 2 tab(s) orally every 6 hours, prn pain , Discontinued Celecoxib 100 MG Capsule 1 cap(s) orally once a day , Discontinued Ondansetron 4 MG Tablet Disintegrating 1 tablet on the tongue and allow to dissolve Orally q8h prn , Medication List reviewed and reconciled with the patient * Allergies: N .K.D.A. Objective: * Vitals: W t: 157.6, Temp: 98.2, BP: 124/76, HR: 62, Nurse: MIKAL, Ht: 66.25, BMI:25.24. * Examination: E NT/Respiratory: General Appearance: N AD. O ral cavity : e rythema without exudate on pharynx. H eart : R RR, normal S1 S2. L ungs: c lear to auscultation bilaterally. E xtremities : n o edema. Assessment: * Assessment: 1. P ersistent cough - R05.3 (Primary) 2 . P ain in right shoulder - M25.511 3 . P ain in left shoulder - M25.512 4 . O bstructive sleep apnea syndrome - G47.33 5 . P ersonal history of nicotine dependence - Z87.891 6. S creening for lung cancer - Z12.2 7 . S creening, lipid - Z13.220 8 . W ell adult exam - Z00.00 9 . P rostate cancer screening - Z12.5 1 0. B VA 25.0-25.9,adult - Z68.25 Plan: * Treatment: Value Reference Range w bc 9.2 3.5 - 10 * l ym 31.4% 15 - 50 * m id 7.3% 2 - 15 * g ran 61.3% 35 - 80 * r bc 5.19 3.5 - 5.5 * h gb 16.9 11.5 - 16.5 * h ct 49.5 35 - 55 * m cv 95.3 75 - 100 * m ch 32.5 25 - 35 * m chc 34.1 31 - 38 * p lat 124 100 - 400 * Luz Elena Merino 09/02/2025 02 :24:25 PM EDT > Provider reviewed results while patient in office. 2.?Pain in right shoulder? Start Meloxicam Tablet, 7.5 MG, 1 tablet, Orally, Once a day, 30 days, 30 Tablet, Refills 1;?Stop Ibuprofen Tablet, 400 MG, 2 tab(s), orally, every 6 hours, prn pain.??3.?Obstructive sleep apnea syndrome? Refill CPAP SUPPLIES, 1, Refills 0.??4.?Personal history of nicotine dependence?Imaging: CT Scan : Chest, low dose* Carolyn Leary 09/02/2025 02: 35:07 PM EDT > faxed to [facility] Scheduling 5.?Screening for lung cancer?Imaging: CT Scan : Chest, low dose* Carolyn Leary 09/02/2025 02: 35:07 PM EDT > faxed to [facility] Scheduling 6.?Screening, lipid?LAB: H-Lipid Panel (Collection Date & Time - 09/10/2025 09:33 AM)?trigs 178, chol 133, dldl 74.78, hdl 37, chol/hdl 3.6* Value Reference Range T RIG 178 H 30-150 - mg/dl * C HOL 133 L 140-200 - mg/dl * D LDL 74.78 L 100-129 - mg/dL * V LDL 36 0-40 - mg/dL * H DL 37 L 40-60 - mg/dl * C HLHDL 3.6 H 1-3.5 - * Krystina Martinez 09/11/2025 09: 21:57 AM EDT > See phone encounter 7.?Well adult exam?LAB: H-CMP (Collection Date & Time - 09/10/2025 09:33 AM)?Normal* Value Reference Range N A 141 136-145 - mmol/L * K 4.5 3.5-5.1 - mmoL/L * C L 104 98-107 - mmol/L * C O2 30 22.0-30.0 - mmol/L * G AP 11.5 5-15 - mEq/L * B UN 19 9-20 - mg/dl * C REATT 0.80 0.66-1.25 - mg/dl * G FRAA 116 >60 - ML/MIN * E GFR 96 >60 - ml/min * G REGAN 100 74-100 - mg/dl * C A 8.7 8.4-10.2 - mg/dl * B ILIT 0.5 0.2-1.3 - mg/dl * A ST 22 17-59 - U/L * A LT 17 12-78 - U/L * T P 7.0 6.3-8.2 - g/dl * A LB 4.3 3.5-5.0 - g/dl * G LOB 2.7 1.3-3.2 - g/dL * A GRATIO 1.6 1.1-1.8 - * A LP 59 38-126 - U/L * Krystina Martinez 09/11/2025 09: 21:57 AM EDT > See phone encounter 8.?Prostate cancer screening?LAB: H-PSA (Collection Date & Time - 09/10/2025 09:33 AM)?Normal* Value Reference Range P SASC 1.1 0.0-4.0 - ng/ml * Krystina Martinez 09/11/2025 09: 21:57 AM EDT > See phone encounter * Procedure Codes: G 2211 Complex e/[place], [address] CAPILLARY BLOOD DRAW, 68924 CBC WITH AUTO DIFF, 1036F TOBACCO NON-USER, G8420 BMI<30 AND >=22 CALC & DOCU, G8783 BP SCR PRFRM RCMDD DEFIND SCR INTVL, G8752 MOST RECENT SYSTOLIC BP < 140MM HG, G8754 MOST RECENT DIASTOLIC BP < 90MM HG, 3074F SYST BP LT 130 MM HG, 3078F DIAST BP < 80 MM HG * Follow Up: v ia phone to report progress * Images: Drawin09/02/25 [facility] Billing Information: * Visit Code: 99380 Office Visit, Est Pt., Level 4. * Procedure Codes: G2211 Complex e/[place]. [address] CAPILLARY BLOOD DRAW. 55090 CBC WITH AUTO DIFF. 1036F TOBACCO NON-USER. G8420 BMI<30 AND >=22 CALC & DOCU. G8783 BP SCR PRFRM RCMDD DEFIND SCR INTVL. G8752 MOST RECENT SYSTOLIC BP < 140MM HG. G8754 MOST RECENT DIASTOLIC BP < 90MM HG. 3074F SYST BP LT 130 MM HG. 3078F DIAST BP < 80 MM HG. * Electronic signature of Monika Phelan MD on 09/16/2025 at 10:02 AM EDT Sign off status: Pending * Provider: Sai Phelan M.D. Date: Generated for Natasha motta/Alan/eTransmitting on: 10:02 AM EDT History and Physical Notes * HPI (History of Present Illness) Category Sub-Category Detail Notes Category Not es HPI [facility]. Pt has a smoking history of 50 years. Pt's states pt has a bad cough and coughs stuff up Examination Category Sub-Category Detail Notes Category Not es ENT/Respiratory Oral cavity : erythema without exudate on pharynx Heart : RRR, normal S1 S2 Lungs: clear to auscultatio n bilaterally Extremities : no edema General Appearance: NAD
--- NOTE | 2025-09-16 09:36 | CT_ITS ---
FINAL REPORT TECHNIQUE: Axial CT images of the chest were obtained without contrast. Low-dose protocol was utilized. This study was performed with techniques to keep radiation doses as low as reasonably achievable (ALARA). Individualized dose reduction techniques using automated exposure control or adjustment of mA and/or kV according to the patient's size were employed. CLINICAL HISTORY: SCREENING CURRENT SMOKER 1/2PPD X51 YEARS COMPARISON: 10/18/2017 FINDINGS: CT CHEST WITHOUT, LOW DOSE SCREENING CT Di Vol: 2.90 mGy DLP: 105.25 mGy*cm No significant mediastinal mass or adenopathy. The heart size is normal. There is no pleural or pericardial effusion. The lung windows show no suspicious mass or nodule. There is minimal scarring in the lingula and at the margin of the right major fissure. Limited images of the upper abdomen demonstrate no acute findings. Calcified granulomas are present in the spleen. IMPRESSION: No suspicious mass or nodule. LR Category 1: 12 month follow-up low-dose chest CT is recommended per Fleischner criteria. Reviewed, Interpreted and Dictated by Dean Cornejo MD Transcribed by Antonia Herron Authenticated and [facility]
--- OUTSIDE RECORDS SUMMARY | 2025-09-16 10:02 | XMS_ITS | Patient Health Record ---
Author Organization [facility] Address [address] [place] [id number] Care Team Providers Care Patient Access Manager Name Role Phone Pérez Phelan Primary Care Provider Allergies No Known Allergies Results Component Value [...] Performing Lab: Notes/Report: [facility] 1.1 0.0-4.0 ng/ml Reason For Referral No Information Medications Medication SIG (Take, Route, Fr equency, Duration) Notes Start Date End Date Status Zithromax Z-Ronaldo 250 MG as directed Orall y daily; Duration: 5 days 09/02/2025 Active Meloxicam 7.5 MG 1 tablet Orally Once a day; Duration: 30 days 09/02/2025 Active CPAP SUPPLIES 10/15/2017 Activ e Immunizations Vaccine Route Administration Date Status Comme nts COVID 19 Moderna Unknown 11/25/2020 Administered COVID 19 Moderna Unknown 12/29/2020 Administered Fluzone PF Quad (6-35 months) Unknown 08/23/2020 Admini stered Hepatitis B (20 and more) Unknown 05/11/2003 Administer ed Social History Tobacco Use: Social History Observation Description Date Details (start date - stop date) Former Smoker NA - NA CURRENT TOBACCO USE: Question Answer Notes Are you a: former smoker When did you start smoking? Star ruiz Smoking: Age 18 When did you stop smoking? stopp ed smokin Problems Problem Type SNOMED Code ICD Code Onset Dates Problem Status W/U Status Risk Notes Problem Obstructive sleep apnea syndrome (68795764) Obstructive sleep apnea syndrome (G47.33) Active confirmed Vital Signs Heart Rate 62 /min 09/02/2025 Blood pressure diastolic 76 mm Hg 09/02/2025 Height 66.25 in 09/02/2025 Blood pressure systolic 124 mm Hg 09/02/2025 Weight 157.6 lbs 09/02/2025 BMI 25.24 kg/m2 09/02/2025 Encounters Encounter Location Date Provider Diagnosis Alan [address] [facility] [address] [place] [id number] 09/02/2025 Pérez Omak Persistent cough R05 .3 ; Pain in right shoulder M25.511 ; Pain in left shoulder M25.512 ; Obstructive sleep apnea syndrome G47.33 ; Personal history of nicotine dependence Z87.891 ; Screening for lung cancer Z12.2 ; Screening, lipid Z13.220 ; Well adult exam Z00.00 ; Prostate cancer screening Z12.5 and BMI 25.0-25.9,adult Z68.25 [facility] [address] [facility] [address] [place] [id number] 09/14/2025 Pérez Omak [facility] [address] [facility] [address] [place] [id number] 06/30/2025 Pérez Omak [place] [address] [facility] [address] [place], [place] [id number] 09/11/2025 Pérez Omak Assessments Encounter Date Diagnosis (ICD Code) Assessment Notes Treatment Notes Treatment Clinical Notes Section Notes 09/02/2025 Pain in right shoulder (ICD-10 - M25.511) 09/02/2025 Persistent cough (ICD-10 - R05.3) 09/02/2025 Pain in left shoulder (ICD-10 - M25.512) 09/02/2025 Obstructive sleep apnea syndrome (ICD-10 - G47.33) 09/02/2025 Personal history of nicotine dependence (ICD-10 - Z87.891) 09/02/2025 Screening for lung cancer (ICD-10 - Z12.2) 09/02/2025 Screening, lipid (ICD-10 - Z13.220) 09/02/2025 Well adult exam (ICD-10 - Z00.00) 09/02/2025 Prostate cancer screening (ICD-10 - Z12.5) 09/02/2025 BMI 25.0-25.9,adult (ICD-10 - Z68.25) Plan Of Treatment Pending Test Test Name Order Date CT Scan : Chest, low dose 09/02/2025 Insurance Providers Payer Name Payer Address Payer Phone Subscriber Number Group Number Insured Name Patient Relationship to Insured Coverage Start Date Coverage End Date [employer] (MEDICAR E) [address] [address] [place] [address] [id number] PILI GATES Self - patient is the insured Medications Administered Medication Instructions Date of Administration Dosage Notes Dexamethasone 04/07/2021 1 mL Medical (General) History Medical History History ICD Code sleep apnea, uses CPAP Testosterone deficiency 60 pack year smoking history as of 2024 diverticulosis, colonoscopy 2010 (?) kidney stones Surgical History Surgery Date(Month/Year) Kidney Stone Jun 2017 Hospitalization History Reason Date(Month/Year) Broken Toe- [facility] ER 11/28/2020 Giardiasis- [facility] 08/11-
--- OUTSIDE RECORDS SUMMARY | 2025-09-16 10:02 | XMS_ITS ---
Author Organization Unknown [facility] Start Date Provider Encounter for Check-up [id number] [facility]
== END 2025-09-16 23:59 | disposition home or self-care (01) ==
LOC: RAD 09:34
PROVIDERS: PCP Family Medicine; Visit Provider Family Medicine
DX: Z12.2 Encounter for screening for malignant neoplasm of respiratory organs (principal); Z87.891 Personal history of nicotine dependence
CPT/HCPCS: 71271